=== PATIENT | male | born 1995 | race Caucasian/White ===

== ENCOUNTER 2017-10-12 00:44 | Emergency (ER) | payer SELFPAY ==
[2017-10-12 00:52] VITALS: BP 124/73; PULSE 101; RESP 18; TEMP 98; O2SAT 98
[2017-10-12 02:02] LABS: BASO # 0.1 K/uL (0.0-0.2); EOS # 0.1 K/uL (0.0-0.7); EOS % 1.4 % (0.0-4.0); HEMOGLOBIN 16.8 g/dL (12.0-18.0); LYMPH # 4.2 K/uL (1.0-4.3); MEAN CELL VOLUME 93.7 fl (80.0-94.0); MEAN CORPUSCULAR HEMOGLOBIN 31.4 pg (27.0-31.0); MEAN CORPUSCULAR HGB CONC 33.5 g/dL (33.0-37.0); MEAN PLATELET VOLUME 7.8 fl (7.2-11.7); MONO # 0.5 K/uL (0.0-0.8); MONO % 5.2 % (0.0-10.0); NEUT # 4.2 K/uL (1.8-7.0); NEUT % 46.4 % (50.0-75.0); NRBC % 0.2 % (0.0-0.0); RBC 5.35 Mil/uL (4.40-5.90); RED CELL DISTRIBUTION WIDTH 14.3 % (11.5-14.5)
[2017-10-12 02:10] LABS: BLOOD UREA NITROGEN 10 mg/dl (9-20); CALCIUM 9.4 mg/dL (8.4-10.2); GFR AFRICAN-AMERICAN > 60; GFR NON-AFRICAN AMERICAN > 60
[2017-10-12 02:11] LABS: ACETAMINOPHEN < 10.0 ug/ml (10.0-30.0); SALICYLATE < 1.0 mg/dl
[2017-10-12 02:31] LABS: BARBITURATES, UR NEGATIVE (NEGATIVE); OPIATES, UR NEGATIVE (NEGATIVE); PHENCYCLIDINE, UR NEGATIVE (NEGATIVE)
[2017-10-12 02:39] LABS: BENZODIAZEPINES, UR POSITIVE (NEGATIVE)
--- NOTE | 2017-10-12 03:11 | ED PDOC ---
HPI: Psych/Substance Abuse Time Seen by Provider: 10/12/17 01:03 Chief Complaint (Nursing): Psychiatric Evaluation Chief Complaint (Provider): Psychiatric Evaluation History Per: Patient History/Exam Limitations: no limitations Additional Complaint(s): 22 y/o male is brought to the ED by EMS for crisis evaluation. Patient reported suicidal thoughts earlier today after his girlfriend left him. Patient was drinking alcohol and felt depressed and took one tablet of Xanax. Patient also cut his left forearm with knife but sustained the scratches. He punched the wall with right hand. Denies any further medical complaints. Past Medical History Reviewed: Historical Data, Nursing Documentation, Vital Signs Vital Signs: Last Vital Signs Temp 98 F 10/12/17 00:49 Pulse 101 H 10/12/17 00:49 Resp 18 10/12/17 00:49 BP 124/73 10/12/17 00:49 Pulse Ox 98 10/12/17 00:49 - Medical History PMH: No Chronic Diseases - Surgical History Surgical History: No Surg Hx - Family History Family History: States: Unknown Family Hx - Social History Current smoker - smoking cessation education provided: No Alcohol: Social Drugs: Denies - Allergies Allergies/Adverse Reactions: Allergies Allergy/AdvReac Type Severity Reaction Status Date / Time No Known Allergies Allergy Verified 10/12/17 00:48 Review of Systems ROS Statement: Except As Marked, All Systems Reviewed And Found Negative (As per HPI, otherwise negative) Neurological: Positive for: Other (Alcohol intoxication) Psych: Positive for: Depression, Suicidal ideation, Other (Crisis evaluation) Physical Exam - Reviewed Nursing Documentation Reviewed: Yes Vital Signs Reviewed: Yes - Physical Exam Appears: Positive for: Well, No Acute Distress Head Exam: Positive for: ATRAUMATIC, NORMAL INSPECTION, NORMOCEPHALIC Skin: Positive for: Normal Color, Warm, Dry Eye Exam: Positive for: Normal appearance, EOMI, PERRL ENT: Positive for: Normal ENT Inspection Neck: Positive for: Normal, Painless ROM, Supple Respiratory: Negative for: Accessory Muscle Use Back: Positive for: Normal Inspection Extremity: Positive for: Normal ROM (Right hand abrasions), Other (Abrasions noted on left arm. Full ROM right hand/digits). Negative for: Deformity, Swelling Neurologic/Psych: Positive for: Alert, Oriented (x3) - Laboratory Results Result Diagrams: 10/12/17 01:58 10/12/17 01:58 - ECG O2 Sat by Pulse Oximetry: 98 (RA) Pulse Ox Interpretation: Normal Medical Decision Making Medical Decision Making: Time: 01:43 Initial Impression: Alcohol intoxication Plan: Crisis evaluation Urine dipstick Hand x-ray Reevaluation Time: 03:00 --Patient was cleared by crisis. --Fracture of fifth metacarpal bone of right hand noted. Time: 03:25 Upon provider reevaluation patient is feeling better, is medically stable, and requires no further treatment in the ED at this time. Patient will be discharged home. Counseling was provided and all questions were answered regarding diagnosis and need for follow up with PMD. There is agreement to discharge plan. Return if symptoms persist or worsen. Clinical Impression: Adjustment disorder, Fracture of fifth metacarpal bone of right hand, substance abuse Scribe Attestation: Documented by Maggy Limon acting as a scribe for Kalyn Cook MD. Scribe Attestation: All medical record entries made by the Scribe were at my direction and personally dictated by me. I have reviewed the chart and agree that the record accurately reflects my personal performance of the history, physical exam, medical decision making, and the department course for this patient. I have also personally directed, reviewed, and agree with the discharge instructions and disposition. Disposition - Clinical Impression Clinical Impression: Adjustment disorder, Fracture of fifth metacarpal bone of right hand, Substance abuse - Patient ED Disposition Is Patient to be Admitted: No Doctor Will See Patient In The: Office Counseled Patient/Family Regarding: Studies Performed, Diagnosis, Need For Followup - Disposition Referrals: Nickolas Lynne MD [Staff Provider] - Disposition: Routine/Home Disposition Time: 03:25 Condition: GOOD Additional Instructions: Follow up with your PCP in 2-3 days. Instructions: Mood Disorders (ED), Polysubstance Abuse (ED), Boxer Fracture (ED )
--- NOTE | 2017-10-12 09:47 | RAD ---
PROCEDURE: Right Hand Radiographs. HISTORY: hand pain injury COMPARISON: None. FINDINGS: BONES: Sequelae of prior 5th metacarpal trauma. No acute fracture. JOINTS: Unremarkable. SOFT TISSUES: Normal. OTHER FINDINGS: None. IMPRESSION: No demonstrated acute fracture or dislocation.
== END 2017-10-12 03:40 | disposition home or self-care (01) ==
LOC: H.ER 00:44
DX: F43.20 Adjustment disorder, unspecified (principal); F19.10 Other psychoactive substance abuse, uncomplicated; S62.306S Unspecified fracture of fifth metacarpal bone, right hand, sequela; W22.01XA Walked into wall, initial encounter
CPT/HCPCS: 73130; 80048; 85025; 99285; G0480